=== PATIENT | male | born 1960 | race Two or more races ===

== ENCOUNTER 2025-02-07 08:23 | Emergency (ER) | payer BC, SELFPAY ==
[2025-02-07 08:48] VITALS: BP 176/98; PULSE 77; RESP 19; TEMP 36.7; O2SAT 99; BMI 33.7
--- NOTE | 2025-02-07 08:58 | XR_ITS ---
Examination: Knee, right, 3 views Technique: Knee AP, lateral, oblique 3 views CLINICAL INDICATION: Patient popped her knee 1 week ago, knee pain ever since Date and time of exam: 02/07/2025 at 9:08 a.m. Findings: There is moderately prominent degenerative narrowing of the joint space in the medial compartment of the knee. There are small surrounding degenerative osteophytes. There is slight abnormal widening of the lateral joint compartment of the knee. There is no radiographic evidence of a knee joint effusion, the infrapatellar tendon appears normal as does the quadriceps tendon. No focal abnormalities are seen in the bones anywhere. IMPRESSION: 1. There is moderately significant degenerative narrowing of the medial joint compartment with small surrounding osteophytes. There is slight widening of the lateral joint compartment. 2. The widening of the lateral joint compartment might possibly suggest the presence of a tear of the lateral collateral ligament. If the patient's symptoms continue, an MRI of the knee would be recommended
--- NOTE | 2025-02-07 09:08 | PD.EDLOWEX ---
Lower Extremity Injury RME/HPI General Chief Complaint: Extremity Injury, Lower Stated Complaint: R) KNEE PAIN Time Seen by Provider: 02/07/25 08:52 Arrival date/time: 02/07/25 08:23 RME / HPI RME / HPI Narrative: 64-year-old male with a past medical history of arthritis, who is a material loader for [employer], presents to the ER complaining of right knee pain x 1 week when he feels as if he twisted it abnormally. Denies any direct trauma, fever, nausea, vomiting, numbness, tingling, weakness. Related Data Previous Rx's ?Medication ?Instructions ?Recorded acetaminophen 300 mg-codeine 30 mg 1 tab PO TID PRN pain #21 tabs 11/20/22 tablet amoxicillin 875 mg-potassium 1 tab PO BID #14 tabs 11/20/22 clavulanate 125 mg tablet lidocaine 5 % topical patch 2 patch topical QDAY #15 ea 02/07/25 (Lidoderm) Allergies Allergy/AdvReac Type Severity Reaction Status Date / Time No Known Allergies Allergy Verified 02/07/25 08:27 ED Exam Narrative Physical exam: Constitutional: Vital Signs Reviewed. Well appearing. No acute distress. Not toxic appearing. Head: Normocephalic, atraumatic. Eyes: Conjunctiva clear. ENT: Mucous membranes moist. Neck: Trachea midline. Normal range of motion. No nuchal rigidity. Respiratory: Normal effort. No respiratory distress or accessory muscle use. Extremity: Right knee with tenderness to medial joint line. No gross deformities, ecchymosis, erythema, heat, effusion. Negative anterior, posterior draw. Normal range of motion from 5-90 which is painless. Compartments remain soft for lower extremity. Posterior tibialis pulse 2+ regular rate and rhythm. Neuro: Alert and oriented. Speech normal. No focal gross motor or sensory deficits observed. Skin: Warm, dry, normal color. Psych: Pleasant. Normal affect. Cooperative. Course Quality Measures none Orders Category Date Time Status Apply knee immobilizer NOW Care 02/07/25 08:59 Completed Crutches .NOW Care 02/07/25 08:59 Completed XR knee comp RT 4V Stat Exams 02/07/25 08:58 Completed HYDROcodone*/APAP 5/325 [[place] 5/325] Med 02/07/25 08:59 Discontinued 1 tab PO X1 ONE Vital Signs Vital signs: Vital Signs Temperature 98.0 F 02/07/25 08:48 Pulse Rate 77 02/07/25 08:48 Respiratory Rate 19 02/07/25 08:48 Blood Pressure 176/98 H 02/07/25 08:48 Pulse Oximetry (%) 99 02/07/25 08:48 Extremity Injury, Lower MDM Narrative MDM Narrative:: MDM: Concern for internal knee derangement resulting in effusion from sprain versus strain versus occult fracture or dislocation vs arthritis No infectious etiology and low suspicion for septic arthritis given lack of circumferential erythema, heat, irritable joint as patient has a fairly good mid range motion but is painless Extremity remains distally neurovascular intact with soft compartments X-ray without gross fracture or bony malalignment Plan for RICE therapy, knee immobilizer, cane WBAT, pain and nausea management as needed f/u with pmd and ortho in 1-2 days, strict ER return precautions Patient data External records reviewed:: [facility] previous records Clinical information provided by:: patient Social determinants that could affect healthcare access:: none Patient has the following chronic illnesses:: As noted How is presenting disease/condition affected by chronic disease/condition?: uneffected by Evaluation data The following diagnostics were reviewed and interpreted by me:: other (specify) Lab and/or radiology exams considered but not ordered:: Additional Labs and radiology considered, but not ordered as they were not clinically indicated at this time. Interpretation Summary: As noted Medications / Prescriptions Medications or Prescriptions considered but not ordered:: I ordered medications based on the patient?s clinical needs and assessment, as documented in the chart. For medications not prescribed, they were not indicated for the patient's current condition, and I determined they were unnecessary at this time to avoid potential risks or complications. Medication administrations:: Medication Administration History Discontinued Medications Hydrocodone Bitart/Acetaminophen (Hydrocodone/Apap 5/325 Tablet) 1 tab PO X1 ONE Stop: 02/07/25 09:00 Last Admin: 02/07/25 09:24 Dose: 1 tab Documented By: As noted Consultations Consultation(s) initiated? (list below): No Diagnosis Most likely diagnosis given after review of the tests above:: As noted Admission Indicated Admission indicated?: not indicated Admission Request Was there a request for admission?: No Disposition Plan Disposition Plan: Discharge Discharge Attestation Discharge Attestation: The patient and all family members were given an opportunity to ask questions and understood the discharge instructions. Discharge instructions specifically effects, indications for sooner follow up or return to the emergency department, and the expected course of current diagnosis. Patient condition: Stable Discharge Plan Plan Patient Disposition: HOME (Self Care) Patient condition on transfer: Stable Prescriptions/Referrals Prescriptions/Med Rec: New lidocaine [Lidoderm] 5 % adhesive patch,medicated 2 patch topical QDAY Qty: 15 0RF Rx Instructions: leave on most painful area for up to 12 hrs No Action amoxicillin-pot clavulanate 875-125 mg tablet 1 tab PO BID Qty: 14 0RF acetaminophen-codeine 300-30 mg tablet 1 tab PO TID PRN (Reason: pain) Qty: 21 0RF Referrals: Brian Champion MD [Primary Care Provider, Family Practice] - In 1 week Filiberto Chin MD [Physician, Orthopedics] - In 1 week Problem List Clinical Impression: Acute knee pain Patient/Caregiver Discharge Instructions Discharge Activity: activity as tolerated and return to work once clear Other Activity Instructions:: No bending, crawling, lifting, stairs, walking more than a few steps Education Materials: ED Knee Sprain Additional Instructions: Follow up with your primary medical doctor within 24 hours. Return to the Emergency Room immediately for any new, worsening, continuing symptoms or any concerns at all. Return to the Emergency Room within 24 hours if you are unable to follow up with your primary medical doctor within 24 hours. Follow-up with your orthopedic doctor within 1 week. Print Language: Belgian Stand Alone Forms: Lala Award Info., Work/School Release, Patient Portal Info Letter ANA PAULA/CONCHITA Supervising Physician NEO Supervising Physician: Dr. Villalba
[2025-02-07] MEDS: HYDROcodone/APAP 5/325 TABLET 1 TAB PO (09:24)
== END 2025-02-07 11:20 | disposition home or self-care (01) ==
LOC: SERX 09:27
PROVIDERS: Emergency Provider Emergency Medicine; PCP Family Medicine
DX: M25.561 Pain in right knee (principal)
CPT/HCPCS: 73562; 73564; 99282; A9270